=== PATIENT | male | born 1950 | race Caucasian/White ===

== ENCOUNTER 2017-11-25 06:03 | Day surgery (SDC) | payer MEDICARE ==
[~2017-11-25] VITALS: Ht 162.6 cm; Wt 71.1 kg
[~2017-11-25 06:03] MED LIST: ALLO100T PO; ATOR10 PO; CLOP75TA32 PO; CYCL10TA7 PO; GABA-531 PO; HYDR25TA PO; LISI-613 PO; METO25TA6 PO; MVIT PO; OXYC-586 PO; VITAMIN B12 PO; VITAMIN C PO; ZINC PO
[2017-11-25 06:49] VITALS: BP 143/64
[2017-11-25] MEDS ORDERED: SODIUM CHLORIDE 0.9% 1000ML 1,000 ML IV ONE (06:50)
[2017-11-25] MEDS ORDERED: PROPOFOL 10 MG/ML 20ML VIAL IV ONE ×2 (08:35)
[2017-11-25 09:01] VITALS: BP 118/61
== END 2017-11-25 09:30 ==
LOC: DAH 06:03 → ENDO 06:03
PROVIDERS: ATTEND Internal Medicine Gastroenterology
DX: Z09 Encounter for follow-up examination after completed treatment for conditions other than malignant neoplasm (principal); K63.5 Polyp of colon; Z80.0 Family history of malignant neoplasm of digestive organs; K57.30 Diverticulosis of large intestine without perforation or abscess without bleeding; I10 Essential (primary) hypertension; I25.10 Atherosclerotic heart disease of native coronary artery without angina pectoris; M10.9 Gout, unspecified; E78.4 Other hyperlipidemia; G47.33 Obstructive sleep apnea (adult) (pediatric); Z86.73 Personal history of transient ischemic attack (TIA), and cerebral infarction without residual deficits; Z98.890 Other specified postprocedural states; Z96.60 Presence of unspecified orthopedic joint implant; Z79.899 Other long term (current) drug therapy; Z86.010 Personal history of colon polyps; Z88.5 Allergy status to narcotic agent; Z88.1 Allergy status to other antibiotic agents; Z87.891 Personal history of nicotine dependence; Z95.1 Presence of aortocoronary bypass graft
CPT/HCPCS: 88305; 93005; A4606; J2704; J7030